=== PATIENT | male | born 1945 | race Two or more races ===

== ENCOUNTER 2021-10-03 19:45 | Inpatient (IN) | payer OTHER ==
[~2021-10-03] VITALS: Ht 172.7 cm; Wt 130.6 kg
--- NOTE | 2021-10-03 20:00 | NUR ---
ADMITTED THE PATIENT IN ROOM 117 FROM [facility]. PT ARRIVED ON THE FLOOR VIA GURNEY ACCOMPANIED BY [facility]. PATIENT A/A/AOX4, AMBULATES WITH CANE. NO SIGN AND SYMPTOMS OF DISTRESS NOTED AT THIS TIME. PT HAS NO COMPLAIN. VSS, AFEBRILE SATING 95% ON 4L/NC. SR ON HOGSHEAD DUMPER, HR-67. ORIENTED THE PATIENT TO THE ROOM SETTING AND USE OF CALL LIGHT SYSTEM. DISCUSSED POC WITH THE PATIENT AND VERBALIZED UNDERSTANDING. CALL LIGHT WITHIN REACH. WILL CONTINUE POC AND MONITORING.
--- NOTE | 2021-10-03 21:20 | NUR ---
MESSAGED DR VEGA FOR ADMISSION ORDERS.
[2021-10-03] MEDS ORDERED: ALBUTEROL HFA MDI 90 MCG/ACTUATION 8 GM INH PRN (21:35)
[2021-10-03] MEDS ORDERED: POTASSIUM CHLORIDE 10 MEQ TABER PO PRN (21:35)
[2021-10-03] MEDS ORDERED: ONDANSETRON 4 MG/2 ML VIAL IM/IVP PRN (21:35)
[2021-10-03] MEDS ORDERED: DOCUSATE SODIUM 100 MG GELCAP PO PRN (21:35)
[2021-10-03] MEDS ORDERED: ZOLPIDEM 5 MG TAB PO PRN (21:35)
[2021-10-03] MEDS ORDERED: ACETAMINOPHEN 325 MG TAB PO PRN (21:35)
[2021-10-03] MEDS ORDERED: HYDROcodone/APAP 7.5/325 MG 1 TAB PO PRN (21:35)
[2021-10-03] MEDS: NACL 0.9% 1,000 ML IV SCH (22:00)
--- NOTE | 2021-10-03 22:00 | NUR ---
STARTED IVF ORDERED. PATIENT DOESN'T KNOW THE LIST OF MEDICATIONS THAT HE IS TAKING. PATIENT STATED THAT HE WILL CALL HIS AND TELL HIS TO CALL US. PROVIDED THE DEPARTMENT PHONE NUMBER TO THE PATIENT.
[2021-10-03 23:17] LABS: BASOPHILS % (AUTO) 0.1 % (0.0-2.0); EOSINOPHILS % (AUTO) 0.1 % (0.0-4.0); HEMATOCRIT 42.8 % (36-52); HEMOGLOBIN 14.5 g/dL (12.0-18.0); LYMPHOCYTES # (AUTO) 0.6 K/uL (2.0-11.5); LYMPHOCYTES % (AUTO) 14.9 % (20.5-51.1); MEAN CORPUSCULAR HEMOGLOBIN 29 pg (27-31); MEAN CORPUSCULAR HGB CONC 34 g/dL (33-37); MEAN CORPUSCULAR VOLUME 85.6 fL (80-94); MONOCYTES # (AUTO) 0.5 K/uL (0.8-1.0); MONOCYTES % (AUTO) 13.4 % (1.7-9.3); NEUTROPHILS # (AUTO) 2.7 K/uL (1.8-7.7); NEUTROPHILS % (AUTO) 71.5 % (42.2-75.2); PLATELET COUNT (AUTO) 200 K/uL (140-450); WHITE BLOOD COUNT (AUTO) 3.8 K/uL (4.8-10.8)
--- NOTE | 2021-10-03 23:20 | NUR ---
SENT URINE SPECIMEN TO THE LAB FOR URINALYSIS AND URINE DRUG SCREEN ORDERED.
--- NOTE | 2021-10-03 23:26 | NUR ---
SPOKE TO PATIENT DAUGHTER DORIAN 4 TIMES TO GET THE PATIENT MEDICATION LIST BUT PATIENT DAUGHTER IS HAVING A HARD TIME READING THE MEDICATIONS NAME AND STATED THAT SHE WILL HAVE HER BROTHER BRING ALL THE MEDICATIONS TOMORROW HERE AT THE HOSPITAL.
[2021-10-03 23:36] LABS: PROTHROMBIN TIME 10.4 secs (10.8-13.4)
[2021-10-03 23:41] LABS: ALBUMIN 2.9 g/dL (3.4-5.0); ANION GAP 11.8 (8-16); ASPARTATE AMINOTRANSFERASE 63 U/L (15-37); CARBON DIOXIDE 25.8 mmol/L (21-32); CHLORIDE 102 mmol/L (98-107); CREATININE 0.9 mg/dL (0.6-1.3); GLUCOSE 197 mg/dL (74-106); POTASSIUM 4.6 mmol/L (3.5-5.1); SODIUM SERUM 135 mmol/L (136-145); TOTAL BILIRUBIN 0.6 mg/dL (0.0-1.0); UREA NITROGEN, BLOOD 14 mg/dL (7-18)
[2021-10-03 23:47] LABS: CHOL/HDL RATIO 3.8 (1-4.5); FREE T4 (FREE THYROXINE) 0.96 ng/dL (0.76-1.46); MAGNESIUM 1.7 mg/dL (1.8-2.4); PHOSPHORUS 1.8 mg/dL (2.5-4.9); THYROID STIMULATING HORMONE 1.41 uIU/mL (0.34-3.74)
[2021-10-04] VITALS: BP 135/57
[2021-10-04 00:58] LABS: APPEARANCE,URINE CLEAR (CLEAR); BILIRUBIN,URINE NEGATIVE (NEGATIVE); BLOOD, URINE NEGATIVE (NEGATIVE); COLOR,URINE YELLOW (YELLOW); LEUKOCYTE ESTERASE ,URINE NEGATIVE (NEGATIVE); NITRITE, URINE NEGATIVE (NEGATIVE); UGLUCOSE 1+ (NEGATIVE)
[2021-10-04 01:03] LABS: BARBITURATE, URINE NEGATIVE ng/ml (NEG <=200); BENZODIAZEPINE, URINE NEGATIVE ng/mL (NEG <=200); CANNABINOID, URINE NEGATIVE ng/mL (NEG <=50); COCAINE, URINE NEGATIVE ng/mL (NEG <=300); OPIATE, URINE NEGATIVE ng/mL (NEG <=2000); PHENCYCLIDINE SCREEN,URINE NEGATIVE ng/mL (NEG <=25)
[2021-10-04] MEDS ORDERED: cefTRIAXone 1,000 MG VIAL ONE (01:11)
[2021-10-04] MEDS: guaiFENesin DM 200/20 MG-10 ML 10 ML UDC PO PRN ×2 (01:26→09:10)
--- NOTE | 2021-10-04 02:53 | NUR ---
PATIENT ASLEEP AT THIS TIME. VISIBLE CHEST RISE AND FALL NOTED. NOT IN ANY DISTRESS. CALL LIGHT WITHIN REACH.
[2021-10-04 04:00] VITALS: BP 133/76
--- NOTE | 2021-10-04 05:35 | NUR ---
EKG PERFORMED COPY PLACED IN CHART AND A COPY WAS HANDED TO RN IT WAS ABNORMAL I WAS UNABLE TO TRANSFER EKG W/ MULTIPLE ATTEMPTS
--- NOTE | 2021-10-04 05:58 | NUR ---
ENDORSED PT TO ARIANE MARSHALL FOR CONTINUITY OF CARE. PATIENT STABLE AND NOT IN ANY DISTRESS. NO COMPLAIN AT THIS TIME. SIGNING OFF.
[2021-10-04] MEDS ORDERED: DEXTROSE 50% 50 ML SYR IVP PRN (06:10)
[2021-10-04 06:41] LABS: BASOPHILS % (AUTO) 0.2 % (0.0-2.0); EOSINOPHILS % (AUTO) 0.1 % (0.0-4.0); HEMATOCRIT 43.1 % (36-52); HEMOGLOBIN 14.5 g/dL (12.0-18.0); LYMPHOCYTES # (AUTO) 0.8 K/uL (2.0-11.5); LYMPHOCYTES % (AUTO) 18.5 % (20.5-51.1); MEAN CORPUSCULAR HEMOGLOBIN 29 pg (27-31); MEAN CORPUSCULAR HGB CONC 34 g/dL (33-37); MEAN CORPUSCULAR VOLUME 86.7 fL (80-94); MONOCYTES # (AUTO) 0.7 K/uL (0.8-1.0); MONOCYTES % (AUTO) 14.8 % (1.7-9.3); NEUTROPHILS % (AUTO) 66.4 % (42.2-75.2); PLATELET COUNT (AUTO) 215 K/uL (140-450); RED BLOOD CELL COUNT(AUTO) 4.97 MIL/uL (4.20-6.10); WHITE BLOOD COUNT (AUTO) 4.5 K/uL (4.8-10.8)
[2021-10-04 06:51] LABS: ANION GAP 14.7 (8-16); CARBON DIOXIDE 25.1 mmol/L (21-32); CHLORIDE 105 mmol/L (98-107); CREATININE 0.8 mg/dL (0.6-1.3); GLUCOSE 140 mg/dL (74-106); POTASSIUM 4.8 mmol/L (3.5-5.1); SODIUM SERUM 140 mmol/L (136-145); UREA NITROGEN, BLOOD 14 mg/dL (7-18)
--- NOTE | 2021-10-04 07:18 | NUR ---
RECEIVED REPORT FROM COCOA PRESS OPERATOR NURSE FOR CONTINUITY OF CARE, POC DISCUSSED. PT IS RESTING IN BED WITH NO ACUTE S/S OF SOB OR DISTRESS. PT IS ON 2L NC SATING AT 94%. PT REPORTS ALL NEEDS MET AT THIS TIME. PT SKIN INTACT WITH A RIGHT AC 20 G RUNNING NS AT 60ML. ALL SAFETY MEASURES IN PLACE, CALL LIGHT WITHIN REACH. WILL CONTINUE TO MONITOR.
[2021-10-04] MEDS ORDERED: BLOOD GLUCOSE MONITORING 1 DEV DEV FS SCH (07:30)
[2021-10-04] MEDS: BLOOD GLUCOSE MONITORING 1 DEV DEV FS SCH ×4 (07:44→21:00)
--- NOTE | 2021-10-04 07:45 | NUR ---
PT BLOOD GLUCOSE IS 124, NO INSULIN COVERAGE NEEDED PER SLIDING SCALE.
[2021-10-04 08:00] VITALS: BP 127/70
--- NOTE | 2021-10-04 08:57 | NUR ---
NATALI MEDICATION ADMINISTERED PER MD ORDER. PT TOLERATED ADMINISTRATION, PT EDUCATION PROVIDED AND PT VERBALIZED UNDERSTANDING. PRN COUGH MEDICATION ADMINISTERED PER MD ORDER. PT IV IS PATENT AND INTACT. PT FINISHED EATING 100% OF HIS BREAKFAST. PT IS SATING AT 94% ON HUMIDIFIED 2L. ALL SAFETY MEASURES IN PLACE, CALL LIGHT WITHIN REACH. WILL CONTINUE TO MONITOR.
[2021-10-04] MEDS ORDERED: COMMUNICATION ORDER MC SCH (09:00)
[2021-10-04] MEDS ORDERED: AZITHROMYCIN 250 MG TAB PO SCH (09:00)
--- NOTE | 2021-10-04 09:04 | NUR ---
PATIENT HAS BEEN SCREENED AND CATEGORIZED MODERATE NUTRITION RISK. PATIENT WILL BE SEEN WITHIN 3-5 DAYS OF ADMISSION. 10/04/21 10/08/[address]
[2021-10-04] MEDS: ZINC SULF 220 MG CAP PO SCH (09:09)
[2021-10-04] MEDS: PANTOPRAZOLE 40 MG TABEC PO SCH (09:09)
[2021-10-04] MEDS: ASCORBIC ACID 500 MG TAB PO SCH (09:10)
[2021-10-04] MEDS ORDERED: remdesivir CLINICAL MONITORING 1 EA MISC MC PRN (09:20)
--- NOTE | 2021-10-04 09:59 | NUR ---
PT PROVIDED WITH PERSONNEL BELONGINGS FROM THE FRONT LOBBY.
--- NOTE | 2021-10-04 10:20 | NUR ---
placed patient on room air to check for desaturations. patient tolerating at this time. saturation while lying in bed ranged from 90-93 on room air. informed nurse of room air status in case pt desats with ambulation later.
--- NOTE | 2021-10-04 11:22 | NUR ---
UPON ROUNDING ON PT, PT O2 SATURATION DROPPED TO 86% WHILE IN BED. PT PLACED BACK ON 3L HUMIDIFIED OXYGEN. SATING AT 91%.
[2021-10-04 12:00] VITALS: BP 147/84
[2021-10-04] MEDS: NACL 0.9% 1,000 ML IV SCH (12:24)
--- NOTE | 2021-10-04 12:24 | NUR ---
PT BLOOD GLUCOSE IS 130, NO INSULIN COVERAGE NEEDED PER SLIDING SCALE
--- NOTE | 2021-10-04 13:29 | NUR ---
VERIFIED WITH PT REGARDING BEING ALLOWED TO GIVE MEDICAL UPDATES TO DAUGHTER- DORIAN LEAHY- PT ACCEPTED. ALL QUESTIONS HAVE BEEN ANSWERED. DAUGHTER PHONE NUMBER IS [phone]
--- NOTE | 2021-10-04 15:15 | NUR ---
NEW IV FLUIDS STARTED FOR PT, IV IS PATENT AND INTACT. PT REPORTS CELL PHONE BEING AND WHEN HIS FAMILY CALLS, TO LET THEM KNOW. PT IS STABLE AND REPORTS ALL OTHER NEEDS ARE MET AT THIS TIME. ALL SAFETY MEASURES IN PLACE, CALL LIGHT WITHIN REACH. WILL CONTINUE TO MONITOR.
[2021-10-04 16:00] VITALS: BP 154/86
[2021-10-04] MEDS: REMDESIVIR. 100 MG in NACL 0.9% 100 ML IV SCH (16:29)
[2021-10-04] MEDS: INSULIN LISPRO SLIDING SCALE 100 UNITS/ML VIAL SUBQ PRN ×2 (16:42→22:01)
--- NOTE | 2021-10-04 16:49 | NUR ---
BLOOD GLUCOSE IS 197, 2 UNITS OF INSULIN ADMINISTERED PER MD ORDER. PT TOLERATED ADMINISTRATION. ALL SAFETY MEASURES IN PLACE. WILL CONTINUE TO MONITOR.
--- NOTE | 2021-10-04 17:55 | NUR ---
PT PROVIDED WITH FRESH ICE COLD WATER, PT IS STABLE AND ALL SAFETY MEASURES IN PLACE. CALL LIGHT WITHIN REACH. WILL CONTINUE TO MONITOR.
--- NOTE | 2021-10-04 18:27 | NUR ---
PT IS STABLE IN BED. ALL SAFETY MEASURES IN PLACE, CALL LIGHT WITHIN REACH. WILL CONTINUE TO MONITOR.
--- NOTE | 2021-10-04 18:55 | NUR ---
ATTEMPTING SEVERAL DIFFERENT ROOM PHONES FOR PATIENT TO CALL HIS FAMILY.
--- NOTE | 2021-10-04 19:00 | NUR ---
PT ENDORSED TO GAS MANAGER NURSE FOR CONTINUITY OF CARE, PT STABLE.
[2021-10-04 20:00] VITALS: BP 135/74
[2021-10-05] VITALS: BP 138/66
[2021-10-05] MEDS: NACL 0.9% 1,000 ML IV SCH ×2 (06:06→22:29)
[2021-10-05] MEDS: BLOOD GLUCOSE MONITORING 1 DEV DEV FS SCH ×4 (06:53→21:00)
[2021-10-05 07:08] LABS: T4 (THYROXINE) 6.7 ug/dL (4.5-12.0)
[2021-10-05 07:10] LABS: BASOPHILS % (AUTO) 0.1 % (0.0-2.0); EOSINOPHILS % (AUTO) 0.1 % (0.0-4.0); HEMATOCRIT 40.7 % (36-52); HEMOGLOBIN 13.8 g/dL (12.0-18.0); LYMPHOCYTES # (AUTO) 0.9 K/uL (2.0-11.5); LYMPHOCYTES % (AUTO) 19.7 % (20.5-51.1); MEAN CORPUSCULAR HEMOGLOBIN 29 pg (27-31); MEAN CORPUSCULAR HGB CONC 34 g/dL (33-37); MEAN CORPUSCULAR VOLUME 86.1 fL (80-94); MONOCYTES # (AUTO) 0.7 K/uL (0.8-1.0); MONOCYTES % (AUTO) 17.2 % (1.7-9.3); NEUTROPHILS # (AUTO) 2.7 K/uL (1.8-7.7); NEUTROPHILS % (AUTO) 62.9 % (42.2-75.2); PLATELET COUNT (AUTO) 232 K/uL (140-450); RED BLOOD CELL COUNT(AUTO) 4.73 MIL/uL (4.20-6.10); RED CELL DISTRIBUTION WIDTH 13.8 % (11.6-13.7); WHITE BLOOD COUNT (AUTO) 4.3 K/uL (4.8-10.8)
[2021-10-05 07:24] LABS: ALBUMIN 2.8 g/dL (3.4-5.0); ANION GAP 8.4 (8-16); ASPARTATE AMINOTRANSFERASE 48 U/L (15-37); CARBON DIOXIDE 29.5 mmol/L (21-32); CHLORIDE 107 mmol/L (98-107); GLUCOSE 131 mg/dL (74-106); POTASSIUM 4.9 mmol/L (3.5-5.1); SODIUM SERUM 140 mmol/L (136-145); TOTAL BILIRUBIN 0.5 mg/dL (0.0-1.0); UREA NITROGEN, BLOOD 17 mg/dL (7-18)
[2021-10-05 08:00] VITALS: BP 164/79
[2021-10-05] MEDS: ASCORBIC ACID 500 MG TAB PO SCH (09:29)
[2021-10-05] MEDS: MAGNESIUM OXIDE 400 MG TAB PO SCH (09:30)
[2021-10-05] MEDS: ZINC SULF 220 MG CAP PO SCH (09:32)
[2021-10-05] MEDS: PANTOPRAZOLE 40 MG TABEC PO SCH (09:32)
[2021-10-05] MEDS: SODIUM PHOS / POTASSIUM PHOS 1 PKT PDR PO SCH ×3 (09:33→16:16)
[2021-10-05 12:00] VITALS: BP 168/82
[2021-10-05] MEDS: lisinopriL 20 MG TAB PO SCH (13:42)
[2021-10-05 16:00] VITALS: BP 150/72
[2021-10-05] MEDS: REMDESIVIR. 100 MG in NACL 0.9% 100 ML IV SCH (16:17)
[2021-10-05] MEDS: INSULIN LISPRO SLIDING SCALE 100 UNITS/ML VIAL SUBQ PRN ×2 (16:31→22:26)
[2021-10-05 20:00] VITALS: BP 133/68
--- NOTE | 2021-10-05 20:22 | NUR ---
Assumed care. A/O x 4. On O2 2 liters via N/C. In no acute distress respiratory or otherwise. Uses urinal to void. Denies pain at this time. Call light within reach. Advised to use it whenever he needs something. Verbalized understanding. Trash bag placed close to the bed. He will be dump all soiled tissues in there. Will continue to monitor.
[2021-10-06] VITALS: BP 152/65
--- NOTE | 2021-10-06 01:24 | NUR ---
PT LAYING IN BED COMFORTABLY NO SIGNS OF RESPIRATORY DISTRESS SATING 97% WILL CONTINUE TO MONITOR.
[2021-10-06 04:00] VITALS: BP 161/63
--- NOTE | 2021-10-06 05:42 | NUR ---
Remains well. A/O x 4. Denies pain. He went as low as 42 HR not sustaining. He is basically SR/SB/SA. Charge nurse Demetrius THAKKAR is aware. Will continue to monitor.
--- NOTE | 2021-10-06 06:25 | NUR ---
Daughter Snow has been given an update this morning. Father shall be notified.
[2021-10-06 07:16] LABS: BASOPHILS % (AUTO) 0.1 % (0.0-2.0); HEMATOCRIT 41.4 % (36-52); LYMPHOCYTES # (AUTO) 1.1 K/uL (2.0-11.5); LYMPHOCYTES % (AUTO) 23.2 % (20.5-51.1); MEAN CORPUSCULAR HEMOGLOBIN 29 pg (27-31); MEAN CORPUSCULAR HGB CONC 34 g/dL (33-37); MEAN CORPUSCULAR VOLUME 85.9 fL (80-94); MONOCYTES # (AUTO) 0.6 K/uL (0.8-1.0); NEUTROPHILS % (AUTO) 63.7 % (42.2-75.2); PLATELET COUNT (AUTO) 254 K/uL (140-450); RED BLOOD CELL COUNT(AUTO) 4.82 MIL/uL (4.20-6.10); RED CELL DISTRIBUTION WIDTH 13.5 % (11.6-13.7); WHITE BLOOD COUNT (AUTO) 4.7 K/uL (4.8-10.8)
[2021-10-06] MEDS: BLOOD GLUCOSE MONITORING 1 DEV DEV FS SCH ×4 (07:16→20:56)
[2021-10-06 07:32] LABS: ALBUMIN 2.8 g/dL (3.4-5.0); ASPARTATE AMINOTRANSFERASE 48 U/L (15-37); CARBON DIOXIDE 28.5 mmol/L (21-32); CHLORIDE 105 mmol/L (98-107); CREATININE 0.9 mg/dL (0.6-1.3); GLUCOSE 132 mg/dL (74-106); POTASSIUM 4.5 mmol/L (3.5-5.1); SODIUM SERUM 139 mmol/L (136-145); TOTAL BILIRUBIN 0.7 mg/dL (0.0-1.0); UREA NITROGEN, BLOOD 15 mg/dL (7-18)
--- NOTE | 2021-10-06 07:39 | NUR ---
He had a good night sleep despite the non-sustaining bradycardia.
--- NOTE | 2021-10-06 07:40 | NUR ---
RECEIVED REPORT FROM SUPERINTENDENT NONSELLING NURSE FOR CONTINUITY OF CARE. AOX4 ABLE TO MAKE NEEDS KNOWN. PT IS RESTING IN BED WITH NO ACUTE S/S OF SOB OR DISTRESS. ON 2L NC SATURATING AT 94%. PT SKIN, WARM, DRY, AND INTACT. WITH A LEFT HAND 20 G RUNNING NS AT 60ML. PLAN OF CARE DISCUSSED. ALL SAFETY MEASURES IN PLACE, CALL LIGHT WITHIN REACH. WILL CONTINUE TO MONITOR.
--- NOTE | 2021-10-06 07:50 | NUR ---
Care has been endorsed to [facility]
[2021-10-06 08:00] VITALS: BP 159/77
[2021-10-06] MEDS: MAGNESIUM OXIDE 400 MG TAB PO SCH (08:46)
[2021-10-06] MEDS: PANTOPRAZOLE 40 MG TABEC PO SCH (08:46)
[2021-10-06] MEDS: ASCORBIC ACID 500 MG TAB PO SCH (08:46)
[2021-10-06] MEDS: SODIUM PHOS / POTASSIUM PHOS 1 PKT PDR PO SCH ×3 (08:46→16:25)
[2021-10-06] MEDS: lisinopriL 20 MG TAB PO SCH (08:46)
[2021-10-06] MEDS: ZINC SULF 220 MG CAP PO SCH (08:47)
--- NOTE | 2021-10-06 09:15 | NUR ---
ALL SCHEDULED MEDS GIVEN. PT IS STABLE. NO DISTRESS NOTED. WILL CONTINUE TO MONITOR.
[2021-10-06 12:00] VITALS: BP 152/84
--- NOTE | 2021-10-06 12:30 | NUR ---
BLOOD GLUCOSE CHECK IS 115. NO INSULIN NEEDED.
--- NOTE | 2021-10-06 12:30 | NUR ---
BLOOD SUGAR CHECK WAS 115. NO INSULIN COVERAGE NEEDED.
--- NOTE | 2021-10-06 14:45 | NUR ---
CHECKED ON PATIENT. PT IS STABLE. NO DISTRESS NOTED. WILL CONTINUE TO MONITOR.
[2021-10-06 16:00] VITALS: BP 159/69
[2021-10-06] MEDS: REMDESIVIR. 100 MG in NACL 0.9% 100 ML IV SCH (16:24)
[2021-10-06] MEDS: NACL 0.9% 1,000 ML IV SCH (16:24)
[2021-10-06] MEDS: INSULIN LISPRO SLIDING SCALE 100 UNITS/ML VIAL SUBQ PRN ×2 (16:33→21:24)
--- NOTE | 2021-10-06 16:33 | NUR ---
BLOOD GLUCOSE CHECK WAS 197. ADMINISTERED 2 UNITS OF INSULIN
--- NOTE | 2021-10-06 19:20 | NUR ---
ENDORSED TO MEDICAL SOCIOLOGIST NURSE FOR CONTINUITY OF CARE. PT IS STABLE.
[2021-10-06 20:00] VITALS: BP 148/76
[2021-10-07] VITALS: BP 158/79
[2021-10-07 04:00] VITALS: BP 169/87
[2021-10-07 06:50] LABS: ANION GAP 10.5 (8-16); CARBON DIOXIDE 27.1 mmol/L (21-32); CHLORIDE 104 mmol/L (98-107); CREATININE 0.8 mg/dL (0.6-1.3); GLUCOSE 152 mg/dL (74-106); POTASSIUM 4.6 mmol/L (3.5-5.1); SODIUM SERUM 137 mmol/L (136-145); UREA NITROGEN, BLOOD 14 mg/dL (7-18)
[2021-10-07] MEDS: BLOOD GLUCOSE MONITORING 1 DEV DEV FS SCH ×2 (07:02→11:30)
[2021-10-07 07:09] LABS: EOSINOPHILS % (AUTO) 0.1 % (0.0-4.0); HEMATOCRIT 41.2 % (36-52); LYMPHOCYTES # (AUTO) 0.9 K/uL (2.0-11.5); LYMPHOCYTES % (AUTO) 16.5 % (20.5-51.1); MEAN CORPUSCULAR HEMOGLOBIN 29 pg (27-31); MEAN CORPUSCULAR HGB CONC 34 g/dL (33-37); MEAN CORPUSCULAR VOLUME 85.7 fL (80-94); MONOCYTES # (AUTO) 0.6 K/uL (0.8-1.0); MONOCYTES % (AUTO) 11.1 % (1.7-9.3); NEUTROPHILS % (AUTO) 72.3 % (42.2-75.2); PLATELET COUNT (AUTO) 274 K/uL (140-450); RED CELL DISTRIBUTION WIDTH 13.9 % (11.6-13.7); WHITE BLOOD COUNT (AUTO) 5.5 K/uL (4.8-10.8)
--- NOTE | 2021-10-07 07:10 | NUR ---
RECEIVED PT FROM TANK CHARGER NURSE. PT STABLE. NO S/S OF DISTRESS. BREATHING SYMMETRICAL. CALL LIGHT IN REACH. ALL SAFETY MEASURES IN PLACE. IV RUNNING PER MD ORDERS. O2 AT 2L NC
--- NOTE | 2021-10-07 07:47 | NUR ---
Assumed care last night. A/O x 4. Denied pain the entire shift. Room was cold. Temp was increased. Three family members were updated and Mr. Chawla's status. He used the urinal. Gown was changed. IV fluids replenished. This AM BG 137. Needs no coverage. Care has been endorsed to Markell THAKKAR
[2021-10-07 08:00] VITALS: BP 152/73
[2021-10-07] MEDS ORDERED: metFORMIN 500 MG TAB PO SCH (08:00)
[2021-10-07] MEDS: NACL 0.9% 1,000 ML IV SCH (08:44)
[2021-10-07] MEDS: MAGNESIUM OXIDE 400 MG TAB PO SCH (08:46)
[2021-10-07] MEDS: SODIUM PHOS / POTASSIUM PHOS 1 PKT PDR PO SCH ×2 (08:46→13:24)
[2021-10-07] MEDS: ASCORBIC ACID 500 MG TAB PO SCH (08:47)
[2021-10-07] MEDS: PANTOPRAZOLE 40 MG TABEC PO SCH (08:47)
[2021-10-07] MEDS: lisinopriL 20 MG TAB PO SCH (08:47)
[2021-10-07] MEDS: ZINC SULF 220 MG CAP PO SCH (08:56)
--- NOTE | 2021-10-07 10:01 | NUR ---
PT MOVED TO CHAIR. CHANGED LINENS AND GOWN. PT TOLERATED WELL. PT STABLE. NO S/S OF DISTRESS. BREATHING SYMMETRICAL. CALL LIGHT IN REACH. ALL SAFETY MEASURES IN PLACE. IV RUNNING PER MD ORDERS. O2 AT 1L NC, SAT AT 95%
[2021-10-07] MEDS ORDERED: DOCU-299 PO (11:22)
[2021-10-07] MEDS ORDERED: ZINC220C29 PO (11:22)
[2021-10-07] MEDS ORDERED: DEXA6TAB1 PO (11:22)
[2021-10-07] MEDS ORDERED: APIX2.5 PO (11:22)
[2021-10-07] MEDS ORDERED: METF-1243 PO (11:22)
[2021-10-07] MEDS ORDERED: VITC500 PO (11:22)
[2021-10-07] MEDS ORDERED: LISI20TA29 PO (11:22)
[2021-10-07 12:00] VITALS: BP 149/82
[2021-10-07] MEDS: INSULIN LISPRO SLIDING SCALE 100 UNITS/ML VIAL SUBQ PRN (12:38)
--- NOTE | 2021-10-07 12:42 | NUR ---
DC PLANNING: THE PATIENT TRANSFERRED FROM A [facility] WITH DX OF COVID PNA AFTER TESTING POSITIVE FOR COVID WITH THEM. ORDER RECEIVED FOR HOME O2, PER PHYSICAL THERAPY THE PATIENT IS SATTING 90% WITH ACTIVITY THEREFORE DOES NOT QUALIFY FOR HOME O2. JAYCOB SPOKE WITH THE PATIENT AT BEDSIDE, CONFIRMED HIS ADDRESS PER HIS FACE SHEET. HIS PHONE NUMBER IS THE NOT THE SAME HIS FACE SHEET AND IS [phone]. HE LIVES IN A GROUND FLOOR APARTMENT ALONE, AND HAS DME OF A GLUCOMETER. THE PATIENT HAS NO H/O HOME HEALTH, AND IS INDEPENDENT IN ALL ACTIVITIES. HE STATES THAT HIS ACTIVITY CONSISTS OF WALKING TO HIS MAILBOX, AND THAT HE HAS CHILDREN WHO TRANSPORT HIM WHERE HE NEEDS TO GO. HE GOES TO [facility] IN [place] AND SEES HIS MD THERE OCCASIONALLY. HOME P.T. RECOMMENDED, ORDERED RECEIVED, CM FAXED A REFERRAL TO [facility]. CM WILL FOLLOW FOR NEEDS. Addendum: 10/07/21 at 1350 by Marika Zhang CM DC PLANNING: THE PATIENT WAS DECLINED BY [facility] THEY DON'T GO TO [place], [facility][phone][facility] THEY ARE ABLE TO STAFF THAT AREA. REFERRAL FAXED TO THEM, CM WILL FOLLOW UP FOR ACCEPTANCE TO SERVICE.
--- NOTE | 2021-10-07 12:56 | NUR ---
PT RESTING IN BED. LUNCH AT BEDSIDE. PT STABLE. NO S/S OF DISTRESS. BREATHING SYMMETRICAL. CALL LIGHT IN REACH. ALL SAFETY MEASURES IN PLACE. IV RUNNING PER MD ORDERS. 02 AT 1L NC. PT TOLERATING WELL
--- NOTE | 2021-10-07 15:45 | NUR ---
PT EDUCATED ON DC INSTRUCTIONS. PT VERBALIZED UNDERSTANDING. COLLECTED PERSONAL BELONGINGS. IV REMOVED, CANULA INTACT. TELE MONITOR REMOVED. PT STABLE. NO S/S OF DISTRESS. BREATHING SYMMETRICAL. CALL LIGHT IN REACH. ALL SAFETY MEASURES IN PLACE. AWAITING TRANSPORTATION
[2021-10-07 16:00] VITALS: BP 131/80
--- NOTE | 2021-10-07 17:15 | NUR ---
PT ESCORTED OUTSIDE FOR TRANSPORTATION. PERSONAL BELONGINGS IN POSSESSION. IV AND ARM BAND WERE REMOVED. PT PROVIDED PANTS. NO S/S OF DISTRESS. AL SAFETY MEASURES IN PLACE.
== END 2021-10-07 17:10 | disposition home health service (06) | DRG 177 ==
LOC: MTU 19:45
PROVIDERS: ADMIT Family Medicine; ATTEND Family Medicine
PROC: XW033E5 Introduction of Remdesivir Anti-infective into Peripheral Vein, Percutaneous Approach, New Technology Group 5 (ICD-10-PCS; principal; 2021-10-06)
DX: U07.1 COVID-19 (principal); J12.82 Pneumonia due to coronavirus disease 2019; J96.01 Acute respiratory failure with hypoxia; E43 Unspecified severe protein-calorie malnutrition; Z68.41 Body mass index [BMI] 40.0-44.9, adult; E66.01 Morbid (severe) obesity due to excess calories; I10 Essential (primary) hypertension; E86.0 Dehydration; I25.10 Atherosclerotic heart disease of native coronary artery without angina pectoris; E11.65 Type 2 diabetes mellitus with hyperglycemia; Z95.1 Presence of aortocoronary bypass graft; Z84.89 Family history of other specified conditions
CPT/HCPCS: 36415; 71045; 80048; 80053; 80305; 81003; 82150; 82948; 83036; 83615; 83690; 83735; 83880; 84100; 84436; 84439; 84443; 84479; 84484; 85025; 85379; 85610; 85651; 85730; 86140; 86886; 86900; 86901; 87081; 94664; 97163-GP; J0696; J1644; J7060